=== PATIENT | female | born 1945 | race African-American/Black ===

== ENCOUNTER 2018-06-08 13:38 | Inpatient (IN) | payer MEDICARE, OTHER ==
[~2018-06-08] VITALS: Ht 167.6 cm; Wt 92.2 kg
[~2018-06-08 13:38] MED LIST: ALTACE5 MG OR; CELEBREX200 MG OR; LORTAB 5 OR; SIMVASTATIN80 MG OR; [UNRECOGNIZED DRUG - OTHER] PO
[2018-06-08] MEDS ORDERED: FERRO SEQUELS PO (14:26)
[2018-06-08] MEDS ORDERED: ALENDRONATE70 MG PO (14:27)
[2018-06-08] MEDS ORDERED: D3 ULTRA ST5000 UNIT PO (14:27)
[2018-06-08] MEDS ORDERED: RANITIDINE150 M1 PO (14:28)
[2018-06-08] MEDS ORDERED: VALACYCLOVIR H500 MG PO (14:28)
[2018-06-08] MEDS ORDERED: LIPITOR40 M1 PO (14:29)
[2018-06-08] MEDS ORDERED: LOSARTAN POTASS50 MG PO (14:29)
[2018-06-08] MEDS ORDERED: AMLODIPINE5 MG PO (14:30)
[2018-06-08] MEDS ORDERED: FUROSEMIDE20 MG PO (14:30)
[2018-06-11] VITALS (11 sets, daily range): BP systolic 119–144; BP diastolic 53–66
[2018-06-11 08:46] LABS: ACT PARTIAL THROMBO TIME 28.9 SECONDS (20.0-32.5); ALBUMIN 4.4 g/dL (3.2-5.0); BILIRUBIN, TOTAL 0.6 mg/dL (0.0-1.4); CREATININE 1.3 mg/dL (0.5-1.0); POTASSIUM 4.4 mmol/l (3.5-5.1); PROTHROMBIN TIME 10.9 SECONDS (9.0-12.5); TOTAL PROTEIN 8.2 g/dL (6.3-8.2)
[2018-06-12] VITALS (8 sets, daily range): BP systolic 129–179; BP diastolic 57–79
[2018-06-12 05:34] LABS: HEMATOCRIT 37.7 % (37.0-47.0); HEMOGLOBIN 12.3 g/dl (12.0-16.0); MEAN CELL VOLUME 90.8 fL CALC (80.0-100.0); MEAN CORPUSCULAR HGB 29.6 pG CALC (26.0-32.0); MEAN CORPUSCULAR HGB CONC 32.6 g/L CALC (32.0-36.0); RED BLOOD COUNT 4.15 mill/uL (4.20-5.60); RED CELL DISTRI WIDTH 13.7 % (11.5-15.5)
[2018-06-13 04:15] VITALS: BP 126/54
[2018-06-13 06:06] LABS: HEMATOCRIT 37.8 % (37.0-47.0); HEMOGLOBIN 12.2 g/dl (12.0-16.0); MEAN CELL VOLUME 91.3 fL CALC (80.0-100.0); MEAN CORPUSCULAR HGB 29.5 pG CALC (26.0-32.0); MEAN CORPUSCULAR HGB CONC 32.3 g/L CALC (32.0-36.0); RED BLOOD COUNT 4.14 mill/uL (4.20-5.60); RED CELL DISTRI WIDTH 14.2 % (11.5-15.5)
[2018-06-13 07:38] VITALS: BP 124/52
[2018-06-13 12:37] VITALS: BP 134/57
[2018-06-13 16:19] VITALS: BP 144/65
[2018-06-13 19:00] VITALS: BP 138/70
[2018-06-14 00:01] VITALS: BP 107/57
[2018-06-14 04:00] VITALS: BP 120/53
[2018-06-14 05:06] LABS: HEMATOCRIT 32.8 % (37.0-47.0); HEMOGLOBIN 10.7 g/dl (12.0-16.0)
[2018-06-14 07:24] VITALS: BP 118/41
[2018-06-14] MEDS ORDERED: ASPIRIN EC325 MG PO (12:39)
[2018-06-14] MEDS ORDERED: SURFAK240 MG/CAP PO (12:39)
[2018-06-14] MEDS ORDERED: PERCOCET 10/31 COMBO PO (12:43)
[2018-06-14 15:58] VITALS: BP 114/45
[2018-06-14 19:00] VITALS: BP 122/44
[2018-06-15 00:27] VITALS: BP 119/64
[2018-06-15 04:00] VITALS: BP 112/44
[2018-06-15 08:19] VITALS: BP 112/44
== END 2018-06-15 13:50 | disposition home health service (06) | DRG 470 ==
LOC: ICU 06-11 07:22 → MS2 06-11 07:22 → ICU 06-11 08:45 → MS2 06-11 11:30
PROVIDERS: Internal Medicine; ADMIT Orthopaedic Surgery; ATTEND Orthopaedic Surgery
PROC: 0SRC0J9 Replacement of Right Knee Joint with Synthetic Substitute, Cemented, Open Approach (ICD-10-PCS; principal; 2018-06-11)
DX: M17.11 Unilateral primary osteoarthritis, right knee (principal); I12.9 Hypertensive chronic kidney disease with stage 1 through stage 4 chronic kidney disease, or unspecified chronic kidney disease; N18.9 Chronic kidney disease, unspecified; K59.00 Constipation, unspecified; Z96.652 Presence of left artificial knee joint
CPT/HCPCS: J2270

== ENCOUNTER 2024-11-25 09:42 | Emergency (ER) | payer MEDICARE, OTHER ==
[2024-11-25] VITALS (8 sets, daily range): BP systolic 80–182; BP diastolic 50–74
[~2024-11-25] VITALS: Ht 167.6 cm; Wt 85.7 kg
[~2024-11-25 09:42] MED LIST changes: +ALENDRONATE70 MG PO; +AMLODIPINE5 MG PO; +ASPIRIN EC325 MG PO; +D3 ULTRA ST5000 UNIT PO; +FERRO SEQUELS PO; +FUROSEMIDE20 MG PO; +LIPITOR40 M1 PO; +LOSARTAN POTASS50 MG PO; +PERCOCET 10/31 COMBO PO; +RANITIDINE150 M1 PO; +SURFAK240 MG/CAP PO; +VALACYCLOVIR H500 MG PO
[2024-11-25] MEDS ORDERED: METHOCARBAMOL 500 MG/TAB PO ONE (10:40)
[2024-11-25] MEDS ORDERED: KETOROLAC TROMETHAMINE 30 MG/ML SDV IM ONE (10:40)
[2024-11-25] MEDS ORDERED: METHOCARBAMOL500 MG PO (11:37)
[2024-11-25] MEDS ORDERED: TORADOL PO (11:37)
== END 2024-11-25 11:58 | disposition home or self-care (01) ==
LOC: ED 09:42
DX: M54.50 Low back pain, unspecified (principal); I10 Essential (primary) hypertension